=== PATIENT | male | born 1980 | race Caucasian/White ===

== ENCOUNTER 2016-04-27 05:41 | Inpatient (IN) | payer BC ==
[~2016-04-27] VITALS: Ht 185.4 cm; Wt 167.8 kg
[~2016-04-27 05:41] MED LIST: BUSPAR10 MG PO; CALCIUM500 M4 PO; COSENTYX P150 MG/1 M SC; EFFEXOR XR150 MG PO; EFFEXOR XR37.5 MG PO; ELOCON 0.1% CRE15 GM TP; FLEXERIL10 MG PO; FLINTSTONES WI1 EACH PO; MOTRIN600 MG PO; MOTRIN800 MG PO; NAPROSYN500 MG PO; NASONEX17 GM BOTH NARES; NORCO 5/3251 TABLET PO; OXAYDO5 MG PO; ROXICODONE5 MG PO; TRIDESILON60 GM TP; VENLAFAXINE HCL75 M3 PO; VITAMIN B-125000 MC1 PO; XANAX0.25 MG PO; ZOLOFT50 MG PO
[2016-04-27 06:42] VITALS: BP 133/74
[2016-04-27 12:06] VITALS: BP 177/96
[2016-04-27 13:35] VITALS: BP 138/86
[2016-04-27 15:58] VITALS: BP 130/62
[2016-04-27 19:05] VITALS: BP 117/56
[2016-04-27 23:20] VITALS: BP 141/67
[2016-04-28 03:39] VITALS: BP 127/69
[2016-04-28 06:20] VITALS: BP 156/92
[2016-04-28 07:34] LABS: HEMATOCRIT 40.9 % (38.0-50.0); MCH 26.7 PG (29.0-34.0); MCHC 31.8 G/DL (30.0-36.0); MEAN PLAT.VOLUME 10.7 uM^3 (9.0-12.4); PLATELET COUNT 163 K/uL (156-360); RBC DIS.WIDTH-CV 12.7 % (11.8-14.6); RBC DIS.WIDTH-SD 38.4 % (39-53); RED BLOOD COUNT 4.87 M/uL (4.00-5.50)
[2016-04-28 07:45] LABS: WHITE BLOOD COUNT 8.4 K/uL (4.1-10.2)
[2016-04-28 08:11] LABS: ANION GAP 9 MEQ/L (2-14); CHLORIDE 99 MEQ/L (99-109); GFR ESTIMATE (CALCULATED) > 59 mL/min/; GLUCOSE 110 mg/dL (70-99); MAGNESIUM 1.9 mg/dl (1.3-2.7); POTASSIUM 3.8 MEQ/L (3.7-5.4); SAMPLE HEMOLYSIS CHECK 0; SAMPLE ICTERIC CHECK 0; SAMPLE LIPEMIA CHECK 0; SODIUM 136 MEQ/L (136-147); UREA NITROGEN (BUN) 7 mg/dL (9-23)
[2016-04-28] MEDS ORDERED: HYDROCODON-ACE1 EAC7 PO (08:16)
[2016-04-28 11:00] VITALS: BP 172/90
[2016-04-28 11:55] LABS: POINT-OF-CARE USER ID AHSSSJB31
[2016-04-28 14:00] VITALS: BP 143/90
== END 2016-04-28 16:06 | disposition home or self-care (01) | DRG 620 ==
LOC: 2SOUTH 05:41 → 2WEST 11:40 → 2EAST 17:03
PROVIDERS: Surgery
PROC: 0DB64Z3 Excision of Stomach, Percutaneous Endoscopic Approach, Vertical (ICD-10-PCS; principal; 2016-04-27)
DX: E66.01 Morbid (severe) obesity due to excess calories (principal); F33.9 Major depressive disorder, recurrent, unspecified; Z68.43 Body mass index [BMI] 50.0-59.9, adult; K76.0 Fatty (change of) liver, not elsewhere classified; F41.9 Anxiety disorder, unspecified; Z88.0 Allergy status to penicillin; Z88.2 Allergy status to sulfonamides; Z88.6 Allergy status to analgesic agent; Z88.3 Allergy status to other anti-infective agents
CPT/HCPCS: 80048; 82948; 83735; 84100; 85027; C9113; J0131; J0330; J0360; J1170; J1580; J1644; J1650; J1815; J1885; J2270; J2405; J2710; J2765; J3010; J3480; J7050; J7120; Q0169; S0020

== ENCOUNTER 2016-06-22 13:45 | Emergency (ER) | payer OTHER ==
[~2016-06-22] VITALS: Ht 185.4 cm; Wt 149.7 kg
[~2016-06-22 13:45] MED LIST changes: +HYDROCODON-ACE1 EAC7 PO
[2016-06-22 13:50] VITALS: BP 133/67
[2016-06-22 14:41] LABS: EOSINOPHIL (%) 2.3 % (0-5); EOSINOPHIL COUNT 0.1 K/uL (0-0.3); HEMATOCRIT 43.1 % (38.0-50.0); IMMATURE GRANULOCYTE (%) 0.2 % (0.0-0.7); INSTRUMENT ABS NEUTROPHIL CT 2.5 K/uL; LYMPHOCYTE COUNT 1.9 K/uL (1.0-2.8); MCH 26.9 PG (29.0-34.0); MCHC 31.6 G/DL (30.0-36.0); MCV 85.2 FL (86-99); MEAN PLAT.VOLUME 11.3 uM^3 (9.0-12.4); MONOCYTE (%) 5.6 % (3-12); MONOCYTE COUNT 0.3 K/uL (0-0.8); NEUTROPHIL (%) 52.4 % (45-76); NEUTROPHIL COUNT 2.5 K/uL (1.8-6.4); PLATELET COUNT 161 K/uL (156-360); RBC DIS.WIDTH-CV 13.2 % (11.8-14.6); RBC DIS.WIDTH-SD 41.2 % (39-53); RED BLOOD COUNT 5.06 M/uL (4.00-5.50); WHITE BLOOD COUNT 4.8 K/uL (4.1-10.2)
[2016-06-22 14:55] LABS: CHLORIDE 105 mEq/L (99-109); POTASSIUM 4.1 mEq/L (3.7-5.4); SODIUM 141 mEq/L (136-147)
[2016-06-22 14:58] LABS: GLUCOSE 90 mg/dL (70-99)
[2016-06-22 14:59] LABS: ANION GAP 11 MEQ/L (2-14); TOTAL BILIRUBIN 0.8 mg/dL (0.0-1.0)
[2016-06-22 15:01] LABS: ALKALINE PHOSPHATASE 42 IU/L (3-129); GFR ESTIMATE (CALCULATED) > 59 mL/min/
[2016-06-22 15:02] LABS: UREA NITROGEN (BUN) 9 mg/dL (9-23)
[2016-06-22 15:03] LABS: DIRECT BILIRUBIN 0.3 mg/dL (0.0-0.3)
[2016-06-22] MEDS ORDERED: TRUVADA1 TABLET PO (15:40)
[2016-06-22] MEDS ORDERED: ISENTRESS400 MG PO (15:40)
[2016-06-23 09:25] LABS: AHBS INDEX 46.31; HEPATITIS B SURFACE ANTIBODY REACTIVE; HPCA INDEX 0.15
[2016-06-23 09:26] LABS: HIV INDEX 0.09; HIV-1/2 AB/AG COMBO Nonreactive
== END 2016-06-22 15:57 | disposition home or self-care (01) ==
LOC: EME 13:45
PROVIDERS: Physician Assistant
DX: S60.941A Unspecified superficial injury of left index finger, initial encounter (principal); Z88.1 Allergy status to other antibiotic agents; Z88.2 Allergy status to sulfonamides; Z88.0 Allergy status to penicillin; Z88.6 Allergy status to analgesic agent; Z98.84 Bariatric surgery status
CPT/HCPCS: 80048; 80076; 85025; 86703; 86706; 86803; 99281; 99283

== ENCOUNTER 2016-08-06 19:20 | Emergency (ER) | payer BC ==
[~2016-08-06] VITALS: Ht 182.9 cm; Wt 137.5 kg
[~2016-08-06 19:20] MED LIST changes: +ISENTRESS400 MG PO; +TRUVADA1 TABLET PO
[2016-08-06 19:50] LABS: EOSINOPHIL (%) 2.1 % (0-5); EOSINOPHIL COUNT 0.2 K/uL (0-0.3); HEMATOCRIT 39.5 % (38.0-50.0); IMMATURE GRANULOCYTE (%) 0.2 % (0.0-0.7); INSTRUMENT ABS NEUTROPHIL CT 3.7 K/uL; LYMPHOCYTE COUNT 3.8 K/uL (1.0-2.8); MCH 27.7 PG (29.0-34.0); MCHC 32.7 G/DL (30.0-36.0); MCV 84.9 FL (86-99); MONOCYTE (%) 7.6 % (3-12); MONOCYTE COUNT 0.6 K/uL (0-0.8); NEUTROPHIL COUNT 3.7 K/uL (1.8-6.4); PLATELET COUNT 158 K/uL (156-360); RBC DIS.WIDTH-SD 43.6 % (39-53); RED BLOOD COUNT 4.65 M/uL (4.00-5.50); WHITE BLOOD COUNT 8.3 K/uL (4.1-10.2)
[2016-08-06 20:01] LABS: CHLORIDE 109 mEq/L (99-109); POTASSIUM 3.6 mEq/L (3.7-5.4); SODIUM 141 mEq/L (136-147)
[2016-08-06 20:03] LABS: GLUCOSE 127 mg/dL (70-99)
[2016-08-06 20:05] LABS: ANION GAP 7 MEQ/L (2-14); TOTAL BILIRUBIN 0.8 mg/dL (0.0-1.0)
[2016-08-06 20:07] LABS: ALKALINE PHOSPHATASE 36 IU/L (3-129); GFR ESTIMATE (CALCULATED) > 59 mL/min/
[2016-08-06 20:08] LABS: UREA NITROGEN (BUN) 8 mg/dL (9-23)
[2016-08-06 20:10] LABS: LIPASE 32 U/L (1.0-51.0)
[2016-08-06 20:50] LABS: ADD MIUA? YES; BILIRUBIN NEGATIVE; BLOOD LARGE; COLOR AMBER ((YELLOW)); GLUCOSE (STRIP) NEGATIVE; KETONES 5; LEUKOCYTES NEGATIVE; NITRITE NEGATIVE; PROTEIN (STRIP) 100; SPECIFIC GRAVITY 1.028 (1.000-1.030)
[2016-08-06 21:05] LABS: RED BLOOD CELLS 30-40 /HPF (0-5)
[2016-08-06 21:06] LABS: BACTERIA 2+ /HPF; CALCIUM OXALATE CRYSTALS 1+ /HPF; EPITHELIAL CELLS RARE /HPF; MUCUS 4+ /LPF
[2016-08-06] MEDS ORDERED: MOTRIN800 MG PO (21:45)
[2016-08-06] MEDS ORDERED: KEFLEX500 MG PO (21:45)
[2016-08-06] MEDS ORDERED: ULTRAM50 MG PO (21:45)
[2016-08-06] MEDS ORDERED: ZOFRAN ODT4 MG PO (21:45)
[2016-08-06] MEDS ORDERED: FLOMAX0.4 MG PO (21:45)
[2016-08-06 22:11] VITALS: BP 117/64
[2016-08-08 13:21] LABS: CHLAMYDIA TRACHOMATIS NEGATIVE; NEISSERIA GONORRHOEAE NEGATIVE
== END 2016-08-06 22:12 | disposition home or self-care (01) ==
LOC: EME 19:20
PROVIDERS: Physician Assistant
DX: N20.1 Calculus of ureter (principal); R82.71 Bacteriuria; Z98.84 Bariatric surgery status
CPT/HCPCS: 74176; 80053; 81003; 83690; 85025; 87086; 87491; 87591; 99281; 99284; J0696; J1885; J3010

== ENCOUNTER 2017-06-19 12:03 | Emergency (ER) | payer BC ==
[~2017-06-19] VITALS: Ht 185.4 cm; Wt 117.4 kg
[~2017-06-19 12:03] MED LIST changes: +FLOMAX0.4 MG PO; +KEFLEX500 MG PO; +ULTRAM50 MG PO; +ZOFRAN ODT4 MG PO
[2017-06-19 13:30] LABS: BASOPHIL (%) 0.4 % (0-1); EOSINOPHIL (%) 1.8 % (0-5); EOSINOPHIL COUNT 0.1 K/uL (0-0.3); HEMATOCRIT 41.9 % (38.0-50.0); IMMATURE GRANULOCYTE (%) 0.2 % (0.0-0.7); LYMPHOCYTE (%) 41.2 % (15-42); LYMPHOCYTE COUNT 2.4 K/uL (1.0-2.8); MCH 29.2 PG (29.0-34.0); MCHC 33.4 G/DL (30.0-36.0); MCV 87.5 FL (86-99); MONOCYTE (%) 5.1 % (3-12); MONOCYTE COUNT 0.3 K/uL (0-0.8); NEUTROPHIL (%) 51.3 % (45-76); NEUTROPHIL COUNT 2.9 K/uL (1.8-6.4); PLATELET COUNT 168 K/uL (156-360); RBC DIS.WIDTH-CV 11.9 % (11.8-14.6); RBC DIS.WIDTH-SD 38.3 % (39-53); RED BLOOD COUNT 4.79 M/uL (4.00-5.50); WHITE BLOOD COUNT 5.7 K/uL (4.1-10.2)
[2017-06-19 13:40] LABS: ALBUMIN 4.2 g/dL (3.2-4.8); CHLORIDE 104 mEq/L (99-109); POTASSIUM 4.4 mEq/L (3.7-5.4); SODIUM 143 mEq/L (136-147)
[2017-06-19 13:42] LABS: GLUCOSE 94 mg/dL (70-99); TOTAL PROTEIN 6.9 g/dL (6.4-8.3)
[2017-06-19 13:44] LABS: TOTAL BILIRUBIN 0.5 mg/dL (0.0-1.0)
[2017-06-19 13:46] LABS: ALKALINE PHOSPHATASE 51 IU/L (3-129); GFR ESTIMATE (CALCULATED) > 59 mL/min/ (58.99-99999)
[2017-06-19 13:47] LABS: UREA NITROGEN (BUN) 12 mg/dL (9-23)
[2017-06-19 13:48] LABS: AST (GOT) 17 IU/L (2-34)
[2017-06-19 13:49] LABS: ALT (GPT) 17 IU/L (3-49); LIPASE 37 U/L (1.0-51.0)
[2017-06-19 13:52] LABS: APPEARANCE CLEAR ((CLEAR)); BILIRUBIN NEGATIVE; BLOOD NEGATIVE; COLOR YELLOW ((YELLOW)); GLUCOSE (STRIP) NEGATIVE; KETONES NEGATIVE; LEUKOCYTES NEGATIVE; NITRITE NEGATIVE; PROTEIN (STRIP) NEGATIVE; SPECIFIC GRAVITY 1.025 (1.000-1.030)
[2017-06-19] MEDS ORDERED: PERCOCET 5/31 TABLET PO (15:40)
[2017-06-19 15:53] VITALS: BP 131/67
[2017-06-21] MEDS ORDERED: MEN'S ONE DAIL1 EACH PO (10:10)
[2017-06-21] MEDS ORDERED: COSENTYX P150 MG/1 M SC (10:10)
[2017-06-21] MEDS ORDERED: VITAMIN B-125000 MC1 PO (10:11)
[2017-06-21] MEDS ORDERED: CITRUS CALCIUM1 EACH PO (10:12)
[2017-06-21] MEDS ORDERED: NIZORAL SHAMPO120 ML TP (10:15)
[2017-06-21] MEDS ORDERED: LIDEX 0.05% CRE60 GM TP (10:16)
== END 2017-06-19 15:56 | disposition home or self-care (01) ==
LOC: EME 12:03
PROVIDERS: Physician Assistant
DX: K43.9 Ventral hernia without obstruction or gangrene (principal); F32.9 Major depressive disorder, single episode, unspecified; Z98.84 Bariatric surgery status; Z98.890 Other specified postprocedural states; Z88.2 Allergy status to sulfonamides; Z88.0 Allergy status to penicillin; Z88.1 Allergy status to other antibiotic agents
CPT/HCPCS: 74177; 80053; 81003; 83690; 85025; 99281; 99285

== ENCOUNTER 2017-06-22 10:12 | Day surgery (SDC) | payer BC ==
[~2017-06-22] VITALS: Ht 185.4 cm; Wt 113.9 kg
[~2017-06-22 10:12] MED LIST changes: +CITRUS CALCIUM1 EACH PO; +LIDEX 0.05% CRE60 GM TP; +MEN'S ONE DAIL1 EACH PO; +NIZORAL SHAMPO120 ML TP; +PERCOCET 5/31 TABLET PO
[2017-06-22 10:42] VITALS: BP 118/69
[2017-06-22] MEDS ORDERED: ONDANSETRON HCL8 MG PO (14:55)
[2017-06-22] MEDS ORDERED: COLACE100 MG PO (14:55)
[2017-06-22] MEDS ORDERED: DILAUDID4 MG PO (14:55)
[2017-06-22] MEDS ORDERED: OXYCONTIN15 MG PO (14:55)
[2017-06-22 16:23] VITALS: BP 136/78
[2017-06-22 17:30] VITALS: BP 128/69
[2017-06-22 19:37] VITALS: BP 121/60
[2017-06-22 20:50] VITALS: BP 137/62
== END 2017-06-22 20:50 | disposition home or self-care (01) ==
LOC: SDC 10:12
DX: K43.2 Incisional hernia without obstruction or gangrene (principal); F41.9 Anxiety disorder, unspecified; E03.9 Hypothyroidism, unspecified; Z88.0 Allergy status to penicillin; Z88.2 Allergy status to sulfonamides
CPT/HCPCS: 88302; C1781; J0131; J0330; J1100; J1170; J1885; J2250; J2405; J2710; J3010; J3370; J7643